=== PATIENT | male | born 1955 | race African-American/Black ===

== ENCOUNTER 2019-09-13 22:30 | Emergency (ER) | payer MEDICAID, OTHER ==
[~2019-09-13] VITALS: Ht 177.8 cm; Wt 79.0 kg
[2019-09-13] MEDS ORDERED: ONDANSETRON HCL 4MG/2ML INJ IV STA (23:10)
[2019-09-13] MEDS ORDERED: SODIUM CHLORIDE 0.9% 1,000 ML IV ONE (23:10)
[2019-09-13] MEDS ORDERED: MORPHINE SULFATE 4 MG/ML CPJ (NOT FOR IM USE) IV STA (23:10)
[2019-09-14 00:14] LABS: INR 0.9; PROTHROMBIN TIME 10.1 sec (9.6-11.0)
[2019-09-14 00:17] LABS: BASOPHILS % 0.7 % (0.0-2.0); EOSINOPHILS % 0.3 % (0.0-5.0); HEMATOCRIT. 28.3 % (42.0-52.0); HEMOGLOBIN. 9.7 g/dL (14.0-18.0); LYMPHOCYTES % 16.9 % (20.0-50.0); MEAN CORPUSCULAR HEMOGLOBIN 30.5 pg (28.0-32.0); MEAN CORPUSCULAR VOLUME 88.8 fL (80.0-94.0); MONOCYTES % 5.8 % (2.0-8.0); NEUTROPHILS % 76.3 % (40.0-76.0); PLATELET 319 x1000/uL (130-400); RED BLOOD CELL COUNT 3.18 mill/uL (4.7-6.1)
[2019-09-14 00:19] LABS: CHLORIDE 98 mEq/L (98-107)
[2019-09-14 00:23] LABS: ETHANOL BLOOD < 10 mg/dL
[2019-09-14] MEDS ORDERED: IOHEXOL-300 100 ML BOTTLE ONE (00:42)
[2019-09-14 04:12] VITALS: BP 140/66
== END 2019-09-14 04:13 | disposition home or self-care (01) ==
LOC: ER 22:30
DX: K92.2 Gastrointestinal hemorrhage, unspecified (principal); D64.9 Anemia, unspecified; F14.10 Cocaine abuse, uncomplicated; K76.89 Other specified diseases of liver; F12.10 Cannabis abuse, uncomplicated; I10 Essential (primary) hypertension; Z88.0 Allergy status to penicillin; Z98.890 Other specified postprocedural states
CPT/HCPCS: 36415; 74177; 80053; 80320; 83605; 83690; 85025; 85610; 86850; 86900; 86901; 96374; 99285; J2405; J7030; Q9967; G0480